=== PATIENT | female | born 1995 | race Two or more races ===

== ENCOUNTER 2017-07-30 08:38 | Emergency (ER) | payer OTHER ==
[2017-07-30 08:44] VITALS: TEMP 98.8; BMI 35.9
[2017-07-30] MEDS ORDERED: ACETAMINOPHEN 325 MG TABLET (FP) PO ONE (09:14)
--- NOTE | 2017-07-30 09:22 | PDOC ---
History of Present Illness - General Chief Complaint: Vaginal Bleeding Stated Complaint: LOWER PELVIC PAIN, BLEEDING Time Seen by Provider: 07/30/17 08:51 History Source: Patient Exam Limitations: No Limitations - History of Present Illness Travel History: No Initial Comments: 07/30/17 09:31 22-year-old female presents to the ED with complaints of vaginal bleeding since this morning which she describes as bright red with small clots. Patient also states started with lower abdominal cramping greater on the right side since last evening now radiating to her lower back. Patient denies nausea, fever, urinary complaints, recent illness, or abdominal distention. Patient has not had a menses since March 2017 which she is followed by her PCP for and had a normal ultrasound done approximately 2 weeks ago with normal findings. Patient did a home test this morning and had a faint second line concerning for . Patient was checked for at Dr. Turner's office twice in the past 2 months which were negative. Patient has no endocrinological disorders such as diabetes, PCO S or thyroid disorders Timing/Duration: reports: constant Quality: reports: mild, cramping Abdominal Pain Onset Location: reports: suprapubic Pain Radiation: reports: no radiation Activities at Onset: reports: none Aggravating Factors: improves with: Movement Alleviating Factors: improves with: None Past History - Travel Traveled outside of the country in the last 30 days: No - Past Medical History Allergies/Adverse Reactions: Allergies Allergy/AdvReac Type Severity Reaction Status Date / Time No Known Allergies Allergy Verified 07/30/17 08:40 COPD: No - Reproductive History LMP Normal: No (#): 0 Polycystic Ovaries: Yes - Suicide/Smoking/Psychosocial Hx Smoking History: Never smoked Information on smoking cessation initiated: No Hx Alcohol Use: No Drug/Substance Use Hx: No Substance Use Type: None Patient Lives Alone: No Lives with/in: parents Review of Systems - Review of Systems Able to Perform ROS?: Yes Constitutional: No: Symptoms Reported HEENTM: No: Symptoms Reported Respiratory: No: Symptoms reported Cardiac (ROS): No: Symptoms Reported ABD/GI: Yes: Abdominal cramping : Yes: Discharge Musculoskeletal: No: Symptoms Reported Integumentary: No: Symptoms Reported Neurological: No: Symptoms reported Endocrine: No: Symptoms Reported Hematologic/Lymphatic: No: Symptoms Reported *Physical Exam - Vital Signs Last Vital Signs Temp Pulse Resp BP Pulse Ox 98.8 F 93 H 18 155/87 100 07/30/17 08:40 07/30/17 08:40 07/30/17 08:40 07/30/17 08:40 07/30/17 08:40 - Physical Exam General Appearance: Yes: Nourished, Appropriately Dressed. No: Apparent Distress HEENT: negative: Pale Conjunctivae Neck: positive: Normal Thyroid Respiratory/Chest: positive: Lungs Clear, Normal Breath Sounds. negative: Respiratory Distress, Accessory Muscle Use Cardiovascular: positive: Regular Rhythm, Regular Rate. negative: Murmur Female Pelvic Exam: positive: cervical os closed, adnexal tenderness (right), vaginal bleeding (moderate amount of bright red blood and small clots.). negative: CMT Gastrointestinal/Abdominal: positive: Soft, Tenderness (mid and right suprapubic ). negative: Distended Integumentary: positive: Normal Color, Warm, Moist Neurologic: positive: Motor Strength 5/5 ( ambulatory) ED Treatment Course - LABORATORY CBC & Chemistry Diagram: 07/30/17 09:30 Medical Decision Making - Medical Decision Making 07/30/17 09:35 Patient is here for evaluation of vaginal bleeding since this morning and lower abdominal cramping since last night. Patient states took a poor test this morning which had resulted to faint minds concerning for . Patient is being followed by her PCP due to amenorrhea since March with normal ultrasound findings on July 21 which showed 2 mm thick endometrial stripe and normal ovarian and uterine findings. Differential diagnosis dysmenorrhea, miscarriage, ectopic Patient ordered for Tylenol secondary to cramping and a urine along with urine . If positive for , will proceed with labs and ultrasound 07/30/17 10:40 Laboratory Tests 07/30/17 07/30/17 09:30 09:30 WBC 6.9 Hgb 13.0 Hct 39.6 Plt Count 366 Urine Protein 1+ H Urine Blood 3+ H Urine Nitrite Negative Urine HCG, Qual Negative Patient states feeling better after receiving the Tylenol. Awaiting the beta quantitative. Laboratory Tests 07/30/17 09:30 Beta HCG, Quant < 1.0 07/30/17 13:15 Ultrasound shows a 1.5 cm right follicular cyst. Patient was reexamined and had no reproducible right suprapubic pain. Patient will be given strict instructions if symptoms worsen including severe abdominal pain, inability to tolerate by mouth or fever to return to the nearest ED as this may need further medical examination and management. *DC/Admit/Observation/Transfer Diagnosis at time of Disposition: Right ovarian cyst, Cramping of right suprapubic region - Discharge Dispostion Disposition: HOME Condition at time of disposition: Improved - Referrals Referrals: Ana Turner [Primary Care Provider] - - Patient Instructions Printed Discharge Instructions: DI for Ovarian Cyst, DI for Abdominal Pain- Adult Additional Instructions: Please make you may take Motrin or Tylenol for discomfort and apply warm heating pad to the affected area to alleviate her discomfort. If you develop severe abdominal pain, inability to eat or drink, fever or nausea please return to the ED immediately for further management. Otherwise you may follow-up with your OPERATIONS DISPATCHER and/or PCP. - Post Discharge Activity
[2017-07-30] MEDS ORDERED: ACETAMINOPHEN 325 MG TABLET (FP) ONE (09:23)
[2017-07-30 09:41] LABS: URINE APPEARANCE CLOUDY; URINE BILIRUBIN NEGATIVE (NEGATIVE); URINE BLOOD 3+ (NEGATIVE); URINE COLOR YELLOW; URINE GLUCOSE (UA) NEGATIVE (NEGATIVE); URINE KETONE NEGATIVE (NEGATIVE); URINE LEUK ESTERASE NEGATIVE (NEGATIVE); URINE NITRITE NEGATIVE (NEGATIVE); URINE UROBILINOGEN NEGATIVE mg/dL (0.2-1.0)
[2017-07-30 09:50] LABS: URINE PROTEIN 1+ (NEGATIVE)
[2017-07-30 10:05] LABS: BASO % 0.7 % (0-2.0); EOS % 1.2 % (0-4.5); HEMATOCRIT 39.6 % (32.4-45.2); LYMPH % 29.6 % (8-40); MCH 28.5 pg (25.7-33.7); MCHC 32.9 g/dl (32.0-36.0); MEAN CELL VOLUME 86.9 fl (80-96); MEAN PLT VOLUME 6.6 fl (7.5-11.1); MONO % 6.8 % (3.8-10.2); NEUT % 61.7 % (42.8-82.8); PLATELET COUNT 366 K/MM3 (134-434); RBC 4.56 M/mm3 (3.60-5.2); RDW 13.5 % (11.6-15.6); WHITE BLOOD COUNT 6.9 K/mm3 (4.0-10.0)
[2017-07-30 10:38] LABS: HCG,QUALITATIVE URINE NEGATIVE
[2017-07-30 11:48] LABS: EPI CELLS RARE /HPF (FEW)
[2017-07-30 13:45] VITALS: BP 106/68; PULSE 70
== END 2017-07-30 13:45 | disposition home or self-care (01) ==
LOC: JER 08:38
DX: N83.201 Unspecified ovarian cyst, right side (principal); R10.30 Lower abdominal pain, unspecified
CPT/HCPCS: 36415; 76830-TC; 81003; 81015; 84702; 84703; 85025; 99283-25

== ENCOUNTER 2018-09-17 16:15 | Emergency (ER) | payer OTHER ==
[2018-09-17 16:21] VITALS: BMI 38.0
--- NOTE | 2018-09-17 17:12 | PDOC ---
Attending Attestation - Resident Resident Name: Piotr Magana - ED Attending Attestation I have performed the following: I have examined & evaluated the patient, The case was reviewed & discussed with the resident, I agree w/resident's findings & plan, Exceptions are as noted - HPI HPI: 23 yo F currently at 18 WGA presents with abrupt onset heavy vaginal bleeding. She states she was sitting at home, felt sudden harris of blood. Denies LH, SOB, cp. has been uncomplicated to date. - Physicial Exam PE: GENERAL: Awake, alert, and fully oriented, in no acute distress HEAD: No signs of trauma EYES: PERRLA, EOMI, sclera anicteric, conjunctiva clear ENT: Auricles normal inspection, hearing grossly normal, nares patent, oropharynx clear without exudates. Moist mucosa NECK: Normal ROM, supple, no lymphadenopathy, JVD, or masses LUNGS: Breath sounds equal, clear to auscultation bilaterally. No wheezes, and no crackles HEART: Regular rate and rhythm, normal S1 and S2, no murmurs, rubs or gallops ABDOMEN: Soft, nontender, normoactive bowel sounds. No guarding, no rebound. No masses EXTREMITIES: Normal range of motion, no edema. No clubbing or cyanosis. No cords, erythema, or tenderness NEUROLOGICAL: Cranial nerves II through XII grossly intact. Normal speech, normal gait. Motor and sensation intact SKIN: Warm, Dry, normal turgor, no rashes or lesions noted. : No external lesions. +Mild blood in vault. Os closed. - Medical Decision Making Pt with second trimester bleeding. Will obtain labs and sono. Will discuss with her radiology teacher.
[2018-09-17] MEDS ORDERED: SODIUM CHLORIDE 0.9% 1000 ML INFUS.BAG IV ONE (17:14)
--- NOTE | 2018-09-17 17:17 | PDOC ---
History of Present Illness - General Chief Complaint: Vaginal Bleeding Stated Complaint: 18 weeks /bleeding Time Seen by Provider: 09/17/18 16:57 History Source: Patient Exam Limitations: No Limitations - History of Present Illness Initial Comments: 09/17/18 17:16 The patient is a 23F at 18 weeks who present to the ER with complaints of vaginal bleeding. The patient states that 1 hour ago, she was sitting on her couch and felt some vaginal bleeding. The patient denies any cramping or abdominal pain. She also denies dysuria, dyscharge, or flank pain. She denies fever, chills, nausea, vomiting. Past History - Past Medical History Allergies/Adverse Reactions: Allergies Allergy/AdvReac Type Severity Reaction Status Date / Time No Known Allergies Allergy Verified 09/17/18 16:21 Home Medications: Ambulatory Orders Vit 108/Iron/Folic AC [ One Tablet] 1 each PO DAILY 09/17/18 COPD: No - Reproductive History (#): 0 Cervical CA: No Dysfunctional Uterine Bleeding: No Ectopic : No Endometrial CA: No Polycystic Ovaries: Yes Therapeutic (s) & number: No Tubal Ligation: No - Suicide/Smoking/Psychosocial Hx Smoking History: Never smoked Hx Alcohol Use: No Drug/Substance Use Hx: No Substance Use Type: None Review of Systems - Review of Systems Able to Perform ROS?: Yes Comments:: 09/17/18 18:16 GENERAL/CONSTITUTIONAL: No fever or chills. No weakness. HEAD, EYES, EARS, NOSE AND THROAT: No change in vision. No ear pain or discharge. No sore throat. CARDIOVASCULAR: No chest pain, palpitations, or lightheadedness. RESPIRATORY: No cough, wheezing, shortness of breath, or hemoptysis. GASTROINTESTINAL: No nausea, vomiting, diarrhea, constipation, or abdominal pain. GENITOURINARY: Positive for vaginal bleeding. No dysuria, frequency, or change in urination. MUSCULOSKELETAL: No joint or muscle swelling or pain. No neck or back pain. SKIN: No rash or lesions. NEUROLOGIC: No headache, numbness, tingling, focal weakness, loss of consciousness, or change in strength/sensation. Is the patient limited Singaporean proficient: No *Physical Exam - Vital Signs Last Vital Signs Temp Pulse Resp BP Pulse Ox 99.2 F 115 H 20 156/93 99 09/17/18 16:18 09/17/18 16:18 09/17/18 16:18 09/17/18 16:18 09/17/18 16:18 - Physical Exam Comments: 09/17/18 18:17 GENERAL: Well developed, well nourished. Awake and alert. No acute distress. HEENT: Normocephalic, atraumatic. Hearing grossly normal. Moist mucous membranes. PERRLA, EOMI. No conjunctival pallor. Sclera are non-icteric. Oropharynx is clear. NECK: Supple. Full ROM. No JVD. CARDIOVASCULAR: Regular rate and rhythm. No murmurs, rubs, or gallops. PULMONARY: No evidence of respiratory distress. Lungs clear to auscultation bilaterally. No wheezing, rales or rhonchi. ABDOMINAL: Soft. Non-tender. Non-distended. No rebound or guarding. GENITOURINARY: No CVA tenderness bilaterally. PELVIC: Blood noted on external genitalia with blood in the vault. Cervical os closed. No CMT. No midline tenderness. MUSCULOSKELETAL: Normal range of motion at all joints. No bony deformities or tenderness. EXTREMITIES: No cyanosis. No clubbing. No edema. No calf tenderness or swelling. SKIN: Warm and dry. Normal capillary refill. No rashes. No jaundice. NEUROLOGICAL: Alert, awake, appropriate. Cranial nerves 2-12 grossly intact. Normal speech. Gait is normal without ataxia. PSYCHIATRIC: Cooperative. Good eye contact. Appropriate mood and affect. Moderate Sedation - Procedure Monitoring Vital Signs: Procedure Monitoring Vital Signs Temperature 99.2 F 09/17/18 16:18 Pulse Rate 115 H 09/17/18 16:18 Respiratory Rate 20 09/17/18 16:18 Blood Pressure 156/93 09/17/18 16:18 O2 Sat by Pulse Oximetry (%) 99 09/17/18 16:18 ED Treatment Course - LABORATORY CBC & Chemistry Diagram: 09/17/18 18:10 09/17/18 18:10 - RADIOLOGY Radiology Studies Ordered: Category Date Time Status TRANSVAGINAL US PREG [US] Stat Ultrasound 09/17/18 17:14 Ordered Medical Decision Making - Medical Decision Making 09/17/18 18:19 The patient is a 23F at 18 weeks who presents with sudden onset vaginal bleeding concerning for threatened . PE unremarkable. Pending labs and US. 09/17/18 19:35 CBC, CMP WNL. UA indicates UTI. Will send abx. UA shows live single with FHR of 136. Pt informed. Will inform SECURITY TRAINER and have pt f/u with SECURITY TRAINER Wednesday. *DC/Admit/Observation/Transfer Diagnosis at time of Disposition: Vaginal bleeding - Discharge Dispostion Disposition: HOME Condition at time of disposition: Stable Decision to Admit order: No - Referrals Referrals: Johnny Armenta MD [Primary Care Provider] - - Patient Instructions Printed Discharge Instructions: DI for Vaginal Bleeding During Additional Instructions: Please follow up with your SECURITY TRAINER on Wednesday. Please return to the ER if you have any signs or symptoms of chest pain, shortness of breath, uncontrollable fever, chills, nausea, vomiting, numbness, tingling, or weakness in any part of your body, changes in vision, or slurred speech. Please take your medications as prescribed. Please return to the ER if symptoms persist, worsen, or new symptoms arise. - Post Discharge Activity
[2018-09-17 18:20] LABS: BASO % 0.2 % (0-2.0); EOS % 0.7 % (0-4.5); HEMATOCRIT 34.4 % (32.4-45.2); LYMPH % 14.3 % (8-40); MCH 30.5 pg (25.7-33.7); MEAN CELL VOLUME 87.4 fl (80-96); MEAN PLT VOLUME 6.9 fl (7.5-11.1); MONO % 5.9 % (3.8-10.2); NEUT % 78.9 % (42.8-82.8); PLATELET COUNT 323 K/MM3 (134-434); RBC 3.93 M/mm3 (3.60-5.2); RDW 13.7 % (11.6-15.6); WHITE BLOOD COUNT 12.3 K/mm3 (4.0-10.0)
[2018-09-17 18:28] LABS: HCG,QUALITATIVE URINE Positive
[2018-09-17 18:29] LABS: URINE APPEARANCE SLCLOUDY; URINE BILIRUBIN NEGATIVE (<2.0 mg/dL); URINE COLOR RED; URINE GLUCOSE (UA) NEGATIVE (NEGATIVE); URINE KETONE NEGATIVE (NEGATIVE); URINE LEUK ESTERASE TRACE (NEGATIVE); URINE NITRITE NEGATIVE (NEGATIVE); URINE PROTEIN 2+ (NEGATIVE); URINE UROBILINOGEN NEGATIVE mg/dL (0.2-1.0)
[2018-09-17 18:41] LABS: EPI CELLS RARE /HPF (FEW)
[2018-09-17 18:50] LABS: ALBUMIN 3.3 g/dl (3.4-5.0); ALK PHOS 60 U/L (45-117); ANION GAP 6 MMOL/L (8-16); BILIRUBIN,TOTAL 0.1 mg/dL (0.2-1); BLOOD UREA NITROGEN 8 mg/dL (7-18); CALCIUM 9.2 mg/dL (8.5-10.1); CHLORIDE 106 mmol/L (98-107); CO2 25 mmol/L (21-32); CREATININE 0.6 mg/dL (0.55-1.3); GLUCOSE,RANDOM 102 mg/dL (74-106); POTASSIUM 3.5 mmol/L (3.5-5.1); SGOT/AST 22 U/L (15-37); SGPT/ALT 34 U/L (13-61); SODIUM 137 mmol/L (136-145); TOT PROT 6.8 g/dl (6.4-8.2)
[2018-09-17 18:56] LABS: INR 1.09 (0.83-1.09); PROTHROMBIN TIME (PATIENT) 12.9 SEC (9.7-13.0)
[2018-09-17 19:57] VITALS: BP 126/78; PULSE 85; TEMP 98.1
== END 2018-09-17 19:57 | disposition home or self-care (01) ==
LOC: JER 16:15
DX: O26.892 Other specified pregnancy related conditions, second trimester (principal); O46.92 Antepartum hemorrhage, unspecified, second trimester; O23.42 Unspecified infection of urinary tract in pregnancy, second trimester; Z3A.18 18 weeks gestation of pregnancy
CPT/HCPCS: 36415; 76856-TC; 80053; 81003; 81015; 84703; 85025; 85610; 86850; 86900; 86901; 87086; 99283-25; J7030

== ENCOUNTER 2019-03-25 02:40 | Emergency (ER) | payer OTHER ==
[2019-03-25 03:26] VITALS: TEMP 98.2; BMI 28.1
--- NOTE | 2019-03-25 05:34 | PDOC ---
History of Present Illness - General Chief Complaint: Back Pain Stated Complaint: BACK PAIN Time Seen by Provider: 03/25/19 05:19 History Source: Patient Exam Limitations: No Limitations - History of Present Illness Initial Comments: 03/25/19 05:30 23 yo F with no past medical history presents to the emergency department with RUQ pain that began at 1:45 am today with sudden onset. The patient states she had pain similar in quality this past Wednesday that occurred at rest with resolution. The patient described the pain as sharp, constant, radiating to the scapula, without nausea and vomiting. Denies fever and chills. Shx: None Allergies: NKDA Social: Denies tobacco, alcohol, and substance abuse. Past History - Past Medical History Allergies/Adverse Reactions: Allergies Allergy/AdvReac Type Severity Reaction Status Date / Time No Known Allergies Allergy Verified 03/25/19 03:26 Home Medications: Ambulatory Orders Cephalexin Monohydrate [Keflex -] 500 mg PO BID #10 capsule 09/17/18 Mv-Mn/Iron/FA/Herbal/Digestive [ One Tablet] 1 each PO DAILY 09/17/18 COPD: No - Reproductive History (#): 0 Para: 0 Cervical CA: No Dysfunctional Uterine Bleeding: No Ectopic : No Endometrial CA: No Polycystic Ovaries: Yes Therapeutic (s) & number: No Tubal Ligation: No Spontaneous : 0 - Suicide/Smoking/Psychosocial Hx Smoking History: Never smoked Have you smoked in the past 12 months: No Information on smoking cessation initiated: No Hx Alcohol Use: No Drug/Substance Use Hx: No Substance Use Type: None Review of Systems - Review of Systems Able to Perform ROS?: Yes Is the patient limited Albanian proficient: No Constitutional: No: Chills, Diaphoresis, Fever, Weakness HEENTM: No: Eye Pain, Ear Pain, Nose Pain, Throat Pain, Mouth Pain Respiratory: No: Cough, Shortness of Breath, Hemoptysis Cardiac (ROS): No: Chest Pain, Lightheadedness, Palpitations, Syncope, Chest Tightness ABD/GI: No: Constipated, Diarrhea, Nausea, Rectal Bleeding, Vomiting, Tarry Stools : No: Burning, Dysuria, Hematuria, Incontinence Musculoskeletal: No: Back Pain, Joint Pain, Neck Pain Integumentary: No: Bruising, Erythema, Rash Neurological: No: Headache, Numbness, Tingling, Tremors Psychiatric: No: Change in Appetite Endocrine: No: Unexplained Weight Gain Hematologic/Lymphatic: No: Anemia *Physical Exam - Vital Signs Last Vital Signs Temp Pulse Resp BP Pulse Ox 98.2 F 91 H 16 137/71 100 03/25/19 02:40 03/25/19 02:40 03/25/19 02:40 03/25/19 02:40 03/25/19 02:40 - Physical Exam General Appearance: Yes: Nourished, Appropriately Dressed ED Treatment Course - LABORATORY CBC & Chemistry Diagram: 03/25/19 05:45 03/25/19 05:45 *DC/Admit/Observation/Transfer Diagnosis at time of Disposition: Cholelithiasis, Hepatic steatosis - Discharge Dispostion Disposition: HOME Condition at time of disposition: Fair - Referrals Referrals: Nazario Coe MD [Staff Physician] - Johnny Armenta MD [Primary Care Provider] - Hudson Uribe MD [Staff Physician] - - Patient Instructions Printed Discharge Instructions: Gallstones (Alternative Therapy), Gallstones, Acute Fatty Liver of , DI for Nonalcoholic Fatty Liver Disease Additional Instructions: Pelase avoid fatty foods and fried foods. Please follow up with the surgeon (Dr. Coe) for evaluation of your gallbladder because you have stones. Please follow up with a GI doc for your liver Please return to the ED if the pain returns. Please follow up with your PCP as needed. Print Language: LAO - Post Discharge Activity
--- NOTE | 2019-03-25 05:53 | PDOC ---
Attending Attestation - Resident Resident Name: KassieAbdirizak - ED Attending Attestation I have performed the following: I have examined & evaluated the patient, The case was reviewed & discussed with the resident, I agree w/resident's findings & plan - HPI HPI: 03/25/19 07:26 Pt comes with RUQ pain. - Physicial Exam PE: 03/25/19 07:27 Agree with resident exam. - Medical Decision Making 03/25/19 07:27 Pt comes with RUQ pain; sono pending; bedisde sono in the ER shows SIN (stones in neck of GB) If normal, home with gen surg/GI consults.
[2019-03-25 06:00] LABS: BASO % 0.2 % (0-2.0); EOS % 0.8 % (0-4.5); HEMOGLOBIN 11.4 GM/dL (10.7-15.3); LYMPH % 12.5 % (8-40); MCH 27.9 pg (25.7-33.7); MCHC 33.4 g/dl (32.0-36.0); MEAN CELL VOLUME 83.5 fl (80-96); MEAN PLT VOLUME 6.9 fl (7.5-11.1); MONO % 6.3 % (3.8-10.2); NEUT % 80.2 % (42.8-82.8); PLATELET COUNT 335 K/MM3 (134-434); RBC 4.08 M/mm3 (3.60-5.2); WHITE BLOOD COUNT 9.4 K/mm3 (4.0-10.0)
[2019-03-25 06:19] LABS: ALBUMIN 4.1 g/dl (3.4-5.0); BILIRUBIN,TOTAL 0.2 mg/dL (0.2-1); BLOOD UREA NITROGEN 13.6 mg/dL (7-18); CALCIUM 9.2 mg/dL (8.5-10.1); CREATININE 0.7 mg/dL (0.55-1.3); POTASSIUM 4.2 mmol/L (3.5-5.1); TOT PROT 7.4 g/dl (6.4-8.2)
--- NOTE | 2019-03-25 07:49 | PDOC ---
*Physical Exam - Vital Signs Last Vital Signs Temp Pulse Resp BP Pulse Ox 98.2 F 91 H 16 137/71 100 03/25/19 02:40 03/25/19 02:40 03/25/19 02:40 03/25/19 02:40 03/25/19 02:40 - Physical Exam Comments: 03/25/19 09:25 Gen: aaox3, nad heart: +s1s2 reg lungs: cta b/l abd: soft, nt/nd +bs ext: no c/c/e ED Treatment Course - LABORATORY CBC & Chemistry Diagram: 03/25/19 05:45 03/25/19 05:45 - ADDITIONAL ORDERS Additional order review: Laboratory Results 03/25/19 03/25/19 03/25/19 05:45 05:45 05:45 Sodium 140 Potassium 4.2 Chloride 106 Carbon Dioxide 27 Anion Gap 7 L BUN 13.6 Creatinine 0.7 Est GFR (CKD-EPI)AfAm 140.55 Est GFR (CKD-EPI)NonAf 121.27 Random Glucose 106 Calcium 9.2 Total Bilirubin 0.2 AST 169 H ALT 120 H Alkaline Phosphatase 105 Total Protein 7.4 Albumin 4.1 Lipase 236 Beta HCG, Quant < 1.0 03/25/19 05:45 RBC 4.08 MCV 83.5 MCHC 33.4 RDW 15.0 MPV 6.9 L Neutrophils % 80.2 Lymphocytes % 12.5 Monocytes % 6.3 Eosinophils % 0.8 Basophils % 0.2 Medical Decision Making - Medical Decision Making 03/25/19 07:48 a/p: 23yo female with RUQ pain and back pain -pt with elevated lft -pt pending RUQ ultrasound -pt currently at ultrasound 03/25/19 09:25 pt with cholelithiasis and fatty liver changes on ultrasound pt denies all pain at this time ultrasound images reviewed, neck is clear on the formal ultrasound discussed dietary changes and elevated lft discussed follow up with surgery, pmd, gi as outpt discussed all reasons to return to the ED answered all questions and discussed all reasons to return to the ED *DC/Admit/Observation/Transfer Diagnosis at time of Disposition: Hepatic steatosis Cholelithiasis Qualifiers: Cholelithiasis location: gallbladder Cholecystitis presence: without cholecystitis Biliary obstruction: without biliary obstruction Qualified Code(s) : K80.20 - Calculus of gallbladder without cholecystitis without obstruction - Discharge Dispostion Disposition: HOME Condition at time of disposition: Fair Decision to Admit order: No - Referrals Referrals: Nazario Coe MD [Staff Physician] - Johnny Armenta MD [Primary Care Provider] - Hudson Uribe MD [Staff Physician] - - Patient Instructions Printed Discharge Instructions: Gallstones (Alternative Therapy), Gallstones, Acute Fatty Liver of , DI for Nonalcoholic Fatty Liver Disease Additional Instructions: Pelase avoid fatty foods and fried foods. Please follow up with the surgeon ( Dr. Coe) for evaluation of your gallbladder because you have stones. Please return to the ED if the pain returns. Please follow up with your PCP as needed. Print Language: DANISH - Post Discharge Activity
[2019-03-25 07:51] VITALS: BP 132/76; PULSE 88
--- NOTE | 2019-03-25 09:03 | PDOC ---
*Physical Exam - Vital Signs Last Vital Signs Temp Pulse Resp BP Pulse Ox 98.2 F 88 17 132/76 98 03/25/19 07:48 03/25/19 07:48 03/25/19 07:48 03/25/19 07:48 03/25/19 07:48 - Physical Exam General Appearance: Yes: Nourished, Appropriately Dressed. No: Apparent Distress HEENT: positive: Normal ENT Inspection, Normal Voice Neck: positive: Supple Respiratory/Chest: positive: Lungs Clear, Normal Breath Sounds. negative: Respiratory Distress Cardiovascular: positive: Regular Rhythm, Regular Rate Vascular Pulses: Dorsalis-Pedis (R): 2+, Doralis-Pedis (L): 2+ Gastrointestinal/Abdominal: positive: Normal Bowel Sounds, Flat, Soft. negative : Tender, Distended, Guarding, Rebound Rectal Exam: positive: deferred Lymphatic: negative: Adenopathy Musculoskeletal: positive: Normal Inspection Extremity: positive: Normal Capillary Refill, Normal Inspection, Normal Range of Motion Integumentary: positive: Normal Color, Dry, Warm Neurologic: positive: Alert, Normal Mood/Affect, Normal Response ED Treatment Course - LABORATORY CBC & Chemistry Diagram: 03/25/19 05:45 03/25/19 05:45 - ADDITIONAL ORDERS Additional order review: Laboratory Results 03/25/19 03/25/19 03/25/19 05:45 05:45 05:45 Sodium 140 Potassium 4.2 Chloride 106 Carbon Dioxide 27 Anion Gap 7 L BUN 13.6 Creatinine 0.7 Est GFR (CKD-EPI)AfAm 140.55 Est GFR (CKD-EPI)NonAf 121.27 Random Glucose 106 Calcium 9.2 Total Bilirubin 0.2 AST 169 H ALT 120 H Alkaline Phosphatase 105 Total Protein 7.4 Albumin 4.1 Lipase 236 Beta HCG, Quant < 1.0 03/25/19 05:45 RBC 4.08 MCV 83.5 MCHC 33.4 RDW 15.0 MPV 6.9 L Neutrophils % 80.2 Lymphocytes % 12.5 Monocytes % 6.3 Eosinophils % 0.8 Basophils % 0.2 - RADIOLOGY Radiograph Interpretation: RUQ US: Right upper quadrant abdominal ultrasound Clinical information: evaluate gallbladder Several small gallbladder calculi are visualized. There is no definite gallbladder overdistention, wall edema or pericholecystic fluid. The common bile duct diameter appears unremarkable measuring 0.5 cm. Diffuse fatty infiltration of the liver is noted. The liver appears borderline in overall size. No obvious mass lesion is seen. No free intraperitoneal fluid is noted. The right kidney and partially visualized pancreas demonstrate no obvious sonographic abnormality. Impression: Cholelithiasis is noted without sonographic evidence of acute cholecystitis. There is no definite bili very tract dilatation. Diffuse hepatic steatosis is seen. Medical Decision Making - Medical Decision Making Patient signed out to me from night team with RUQ abdominal pain pending RUQ US RUQ US: Impression: Cholelithiasis is noted without sonographic evidence of acute cholecystitis. There is no definite bili very tract dilatation. Diffuse hepatic steatosis is seen. Re-assessment: Patient feels well and no longer has abdominal pain at rest. There is still minimal discomfort upon deep palpation of the RUQ. Disposition: Home with surgical, GI and PCP follow up as outpatient. *DC/Admit/Observation/Transfer Diagnosis at time of Disposition: Hepatic steatosis Cholelithiasis Qualifiers: Cholelithiasis location: gallbladder Cholecystitis presence: without cholecystitis Biliary obstruction: without biliary obstruction Qualified Code(s) : K80.20 - Calculus of gallbladder without cholecystitis without obstruction - Discharge Dispostion Disposition: HOME Condition at time of disposition: Fair Decision to Admit order: No - Referrals Referrals: Johnny Armenta MD [Primary Care Provider] - Nazario Coe MD [Staff Physician] - Hudson Uribe MD [Staff Physician] - - Patient Instructions Printed Discharge Instructions: Gallstones (Alternative Therapy), Gallstones, Acute Fatty Liver of , DI for Nonalcoholic Fatty Liver Disease Additional Instructions: Pelase avoid fatty foods and fried foods. Please follow up with the surgeon (Dr. Coe) for evaluation of your gallbladder because you have stones. Please follow up with a GI doc for your liver Please return to the ED if the pain returns. Please follow up with your PCP as needed. Print Language: FRENCH - Post Discharge Activity
== END 2019-03-25 09:30 | disposition home or self-care (01) ==
LOC: JER 02:40
PROC: BF42ZZZ Ultrasonography of Gallbladder (ICD-10-PCS; principal; 2019-03-25)
DX: K80.20 Calculus of gallbladder without cholecystitis without obstruction (principal); K76.0 Fatty (change of) liver, not elsewhere classified
CPT/HCPCS: 36415; 76705-TC; 80053; 83690; 84702; 85025; 99283-25

== ENCOUNTER 2020-09-24 04:20 | Day surgery (SDC) | payer OTHER ==
[2020-09-23 10:25] VITALS: BMI 39.1
[2020-09-24 10:29] VITALS: TEMP 100
[2020-09-24 11:15] VITALS: BP 124/66; PULSE 69
== END 2020-09-24 11:15 | disposition home or self-care (01) ==
LOC: JASU-ENDO 04:20
PROVIDERS: ATTEND Internal Medicine Gastroenterology
PROC: 0DB78ZX Excision of Stomach, Pylorus, Via Natural or Artificial Opening Endoscopic, Diagnostic (ICD-10-PCS; principal; 2020-09-24 09:58)
DX: K29.50 Unspecified chronic gastritis without bleeding (principal); K31.89 Other diseases of stomach and duodenum
CPT/HCPCS: 81025; 88305-TC; 88342-TC